=== PATIENT | male | born 1985 | race Hispanic/Latino ===

== ENCOUNTER 2017-04-23 11:44 | Emergency (ER) | payer SELFPAY ==
[2017-04-23 11:48] VITALS: BP 129/79; PULSE 66; TEMP 97; O2SAT 98
[2017-04-23 11:49] VITALS: BMI 27.6
[2017-04-23] MEDS ORDERED: Oxycodone/Acetaminophen 5/325 mg Tab PO STA (12:28)
[2017-04-23] MEDS ORDERED: Lidocaine 5% Patch TD STA (12:29)
[2017-04-23] MEDS ORDERED: Lidocaine 5% Patch TD ONE (12:58)
[2017-04-23] MEDS ORDERED: Oxycodone/Acetaminophen 5/325 mg Tab ONE (13:05)
--- NOTE | 2017-04-23 13:19 | ED PDOC ---
HPI: Back Time Seen by Provider: 04/23/17 12:07 Chief Complaint (Nursing): Back Pain Chief Complaint (Provider): Back Pain History Per: Patient History/Exam Limitations: no limitations Onset/Duration Of Symptoms: Hrs (since this morning) Current Symptoms Are (Timing): Still Present Previous Symptoms: Chronic Pain (hx of herniated disks), Prior Surgery Associated Symptoms: None Additional Complaint(s): 32 year old male presents to ED with complaints of back pain since this morning and has a a past medical history of multiple herniated disks. States that he picked his daughter and immediately felt pain in his right butt cheek. Notes that the pain progressively worsened to the point of being unable to get up from the bed. Notes mild back pain yesterday after being bent over from helping his children ski. Reports having an epidural and ablation surgery done due to multiple herniated disks. (-) blunt trauma, incontinence, abdominal pain, fever , nausea, or vomiting. PCP: Kehinde Malloy - Risk Factors AAA Risk Factors: Neg: Older Than 49 Years Of Age Past Medical History Reviewed: Historical Data, Nursing Documentation, Vital Signs Vital Signs: Last Vital Signs Temp 97 F L 04/23/17 11:47 Pulse 66 04/23/17 11:47 Resp BP 129/79 04/23/17 11:47 Pulse Ox 98 04/23/17 11:47 - Medical History PMH: Chronic Pain (secondary to multiple herniated disks) - Surgical History Surgical History: Appendectomy, Back Surgery - Family History Family History: States: No Known Family Hx - Living Arrangements Living Arrangements: With Family - Home Medications Home Medications: Ambulatory Orders Medication Instructions Recorded Lidocaine 5% [Lidoderm] 1 ea TD DAILY PRN #10 patch 04/23/17 Meloxicam [Mobic] 15 mg PO DAILY #30 tab 04/23/17 diaZEpam [Valium] 10 mg PO Q8H PRN #15 tab 04/23/17 - Allergies Allergies/Adverse Reactions: Allergies Allergy/AdvReac Type Severity Reaction Status Date / Time No Known Allergies Allergy Verified 04/23/17 12:03 Review of Systems ROS Statement: Except As Marked, All Systems Reviewed And Found Negative Constitutional: Negative for: Fever Gastrointestinal: Negative for: Nausea, Vomiting, Abdominal Pain Genitourinary Male: Negative for: Incontinence Musculoskeletal: Positive for: Back Pain Physical Exam - Reviewed Nursing Documentation Reviewed: Yes Vital Signs Reviewed: Yes - Physical Exam Appears: Positive for: Non-toxic, In Acute Distress (severe painful distress) Skin: Positive for: Normal Color, Warm, Dry Respiratory: Positive for: Normal Breath Sounds. Negative for: Respiratory Distress Gastrointestinal/Abdominal: Positive for: Soft. Negative for: Tenderness Back: Positive for: Muscle Spasm (moderate right buttock tenderness with spasm) , Other (bilateral straight leg raise at 30 degrees). Negative for: Vertebral Tenderness Neurologic/Psych: Positive for: Alert, Oriented. Negative for: Motor/Sensory Deficits - ECG O2 Sat by Pulse Oximetry: 98 (RA) Pulse Ox Interpretation: Normal Medical Decision Making Medical Decision Makin Initial impression: chronic back pain Initial plan: * CT LUMBAR SPINE * Lidoderm 5% 1 ea TD * Percocet 2 tab PO * Valium 10mg PO 1307 * Toradol 60mg IM * Re-eval 1325 CT FINDINGS VERTEBRAE: No acute compression fractures no retropulsed fragments. Chronic appearing Schmorl's node changes seen at the L1-L2 level. DISCS/SPINAL CANAL/NEURAL FORAMINA: L1-2: As mentioned above, chronic appearing Schmorl's node changes seen involving the L1-L2 endplates. The no disc herniation or significant disc bulge. L1-L2 endplates. Central canal and exit foramina adequate L2-3: Disc space heights relatively maintained. No disc herniation or significant disc bulge. Central canal and exit foramina adequate. L3-4: Minor posterior disc space narrowing. Minimal broad-based bulge of the posterior annulus. Central canal and exit foramina adequate. . L4-5: Disc space narrowing with small broad-based osteophytic ridge disc bulge complex that extends into the proximal inferior margins of both exit foramina. Facets are slightly hypertrophic. There is mild bilateral lateral recess narrowing however central canal measured at midline adequate. . Facet joints mildly hypertrophic Exit foramina narrowed bilaterally right greater than left. . L5-S1: Mild posterior disc space narrowing with central and bilateral disc bulge that extends into the proximal inferior margins of both exit foramina. Facet joints are mildly hypertrophic Central canal appears adequate. . Left exit foramen is stenotic with compression of the exiting left-sided L5 nerve root the. Right exit foramen appears marginal to minimally narrowed. PARASPINAL SOFT TISSUES: Unremarkable. OTHER FINDINGS: None. IMPRESSION: No acute compression fractures. Mild multilevel degenerative spondylosis most notably affecting L4-L5 level as above. 1400 On re-evaluatin, pt. reports feeling much better. Pain has improved. Informed of CT results and instructed to f/u with orthopedist or PMD. Scribe Attestation: Documented by Minerva Payne, acting as a scribe for Bert Rodriguez PA-C. Provider Scribe Attestation: All medical record entries made by the Scribe were at my direction and personally dictated by me. I have reviewed the chart and agree that the record accurately reflects my personal performance of the history, physical exam, medical decision making, and the department course for this patient. I have also personally directed, reviewed, and agree with the discharge instructions and disposition. Disposition - Clinical Impression Clinical Impression: Sciatica - Patient ED Disposition Is Patient to be Admitted: No - Disposition Referrals: Giselle Rubalcava [Outside] Disposition: Routine/Home Disposition Time: 14:07 Condition: IMPROVED Prescriptions: diaZEpam [Valium] 10 mg PO Q8H PRN #15 tab PRN Reason: Muscle Spasm Lidocaine 5% [Lidoderm] 1 ea TD DAILY PRN #10 patch PRN Reason: pain Meloxicam [Mobic] 15 mg PO DAILY #30 tab Instructions: Sciatica (ED), Back Exercises (ED) Forms: Giselle Esposito ([place]ian), [facility] ED School/Work Excuse Print Language: TURKMEN
--- NOTE | 2017-04-23 13:26 | CT ---
PROCEDURE: CT Lumbar Spine without contrast HISTORY: pain COMPARISON: None. TECHNIQUE: Axial computed tomography images were obtained of the lumbar spine without the use of intravenous contrast. Coronal and sagittal reformatted images were created and reviewed. Radiation dose: Total exam DLP = 1463.35 mGy-cm. This CT exam was performed using one or more of the following dose reduction techniques: Automated exposure control, adjustment of the mA and/or kV according to patient size, and/or use of iterative reconstruction technique. FINDINGS: VERTEBRAE: No acute compression fractures no retropulsed fragments. Chronic appearing Schmorl's node changes seen at the L1-L2 level. DISCS/SPINAL CANAL/NEURAL FORAMINA: L1-2: As mentioned above, chronic appearing Schmorl's node changes seen involving the L1-L2 endplates. The no disc herniation or significant disc bulge. L1-L2 endplates. Central canal and exit foramina adequate L2-3: Disc space heights relatively maintained. No disc herniation or significant disc bulge. Central canal and exit foramina adequate. L3-4: Minor posterior disc space narrowing. Minimal broad-based bulge of the posterior annulus. Central canal and exit foramina adequate. . L4-5: Disc space narrowing with small broad-based osteophytic ridge disc bulge complex that extends into the proximal inferior margins of both exit foramina. Facets are slightly hypertrophic. There is mild bilateral lateral recess narrowing however central canal measured at midline adequate. . Facet joints mildly hypertrophic Exit foramina narrowed bilaterally right greater than left. . L5-S1: Mild posterior disc space narrowing with central and bilateral disc bulge that extends into the proximal inferior margins of both exit foramina. Facet joints are mildly hypertrophic Central canal appears adequate. . Left exit foramen is stenotic with compression of the exiting left-sided L5 nerve root the. Right exit foramen appears marginal to minimally narrowed. PARASPINAL SOFT TISSUES: Unremarkable. OTHER FINDINGS: None. IMPRESSION: No acute compression fractures. Mild multilevel degenerative spondylosis most notably affecting L4-L5 level as above. .
== END 2017-04-23 14:25 | disposition home or self-care (01) ==
LOC: H.ER 11:44
DX: M54.30 Sciatica, unspecified side (principal); M48.061 Spinal stenosis, lumbar region without neurogenic claudication; G89.29 Other chronic pain; Z98.890 Other specified postprocedural states
CPT/HCPCS: 72131; 96372; 99282; J1885